=== PATIENT | male | born 2000 | race Caucasian/White ===

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

== ENCOUNTER 2020-08-12 08:33 | Emergency (ER) | payer OTHER ==
[2020-08-12 08:49] VITALS: BP 121/72; PULSE 69; RESP 16; TEMP 98.8
[2020-08-12 10:10] LABS: Appearance,Urine Clear (Clear); Bilirubin,Urine Negative (Negative); Blood,Urine Negative (Negative); Color,Urine Yellow; Glucose,Urine (UA) Negative (Negative); Ketones,Urine Negative (Negative); Leukocyte Esterase,Urine Negative (Negative); Nitrite,Urine Negative (Negative); PH, Urine 7.5 (5.0-8.0); Protein,Urine Trace (Negative); Specific Gravity,Urine 1.028 (1.001-1.035)
--- NOTE | 2020-08-12 10:11 | ED ---
Male Urogenital HPI - General Chief complaint: Urogenital Stated complaint: Make Time Seen by Provider: 08/12/20 09:19 Source: patient, RN notes reviewed Mode of arrival: ambulatory Limitations: no limitations - History of Present Illness Initial comments: 20-year-old male presents emergency Department with chief complaint of right- sided hip pain. Patient states started yesterday felt like he was just having some discomfort. Patient states that he seemed to worsen throughout work and states that it worsened as he ambulated. Patient denies any significant swelling. Patient has no dysuria no hematuria. Patient has no plan on discharge. Patient denies chest pain shortness breath back pain. - Related Data Home Medications Medication Instructions Recorded Confirmed FLUoxetine HCL [PROzac] 40 mg PO DAILY 08/12/20 08/12/20 Ibuprofen [Motrin] 600 mg PO Q8HR PRN 08/12/20 08/12/20 Omeprazole 20 mg PO DAILY 08/12/20 08/12/20 clonazePAM 0.5 mg PO HS 08/12/20 08/12/20 Allergies Allergy/AdvReac Type Severity Reaction Status Date / Time No Known Allergies Allergy Verified 08/12/20 10:07 Review of Systems ROS Statement: Those systems with pertinent positive or pertinent negative responses have been documented in the HPI. ROS Other: All systems not noted in ROS Statement are negative. Past Medical History Past Medical History: No Reported History History of Any Multi-Drug Resistant Organisms: None Reported Past Surgical History: Adenoidectomy, Tonsillectomy Past Psychological History: ADD/ADHD Smoking Status: Vaper Past Alcohol Use History: None Reported Past Drug Use History: Marijuana General Exam Limitations: no limitations General appearance: alert, in no apparent distress Head exam: Present: atraumatic, normocephalic, normal inspection Respiratory exam: Present: normal lung sounds bilaterally. Absent: respiratory distress, wheezes, rales, rhonchi, stridor Cardiovascular Exam: Present: regular rate, normal rhythm, normal heart sounds. Absent: systolic murmur, diastolic murmur, rubs, gallop, clicks GI/Abdominal exam: Present: soft, normal bowel sounds. Absent: distended, tenderness, guarding, rebound, rigid exam: Present: testicular tenderness, circumcision. Absent: vertical testicular lie Back exam: Absent: CVA tenderness (R), CVA tenderness (L) Neurological exam: Present: alert, oriented X3, CN II-XII intact Course Vital Signs 08/12/20 08:45 Temperature 98.8 F Pulse Rate 69 Respiratory 16 Rate Blood Pressure 121/72 O2 Sat by Pulse 99 Oximetry Medical Decision Making - Medical Decision Making This a 20-year-old male presented for right groin pain. Ultrasound shows left epididymal cyst and evidence of epididymitis. Patient's urinalysis unremarkable. Patient will follow-up surgery for probable early hernia. - Lab Data Lab Results 08/12/20 Range/Units 09:44 Urine Color Yellow Urine Appearance Clear (Clear) Urine pH 7.5 (5.0-8.0) Ur Specific [place] 1.028 (1.001-1.035) Urine Protein Trace H (Negative) Urine Glucose (UA) Negative (Negative) Urine Ketones Negative (Negative) Urine Blood Negative (Negative) Urine Nitrite Negative (Negative) Urine Bilirubin Negative (Negative) Urine Urobilinogen 2.0 (<2.0) mg/dL Ur Leukocyte Esterase Negative (Negative) Disposition Clinical Impression: Inguinal hernia Disposition: HOME SELF-CARE Condition: Stable Instructions (If sedation given, give patient instructions): Inguinal Hernia (ED) Additional Instructions: Please return to the Emergency Department if symptoms worsen or any other concerns. Is patient prescribed a controlled substance at d/c from ED?: No Referrals: Jeremie Burns MD [REFERRING] - 1-2 days Taryn Green MD [STAFF PHYSICIAN] - 1-2 days Time of Disposition: 10:20
--- NOTE | 2020-08-12 10:12 | US ---
EXAMINATION TYPE: US scrotum with doppler. Grayscale and color Doppler Duplex imaging performed of clarita baumann scrotum. DATE OF EXAM: 08/12/2020 COMPARISON: US 2019 CLINICAL HISTORY: pain/?hernia. EXAM MEASUREMENTS: TESTICLES: Right Testicle: 4.4 x 2.5 x 2.8 cm Left Testicle: 4.7 x 2.4 x 2.8 cm EPIDIDYMIS HEAD: Right Epididymis: 1.1 x 0.7 cm Left Epididymis: 1.3 x 0.7 cm , 0.3 x 0.3 cm cyst. Doppler performed to assess for testicular vascularity; good bilateral color flow and waveforms are s een. There is no evidence of testicular torsion. Presence of hydroceles: none appreciated Presence of varicoceles: none appreciated IMPRESSION: Left epididymal cyst.
[2020-08-12] MEDS ORDERED: ACET/COD 300 MG/30 MG STARTER PACK 6 TAB BTL PO STA (10:22)
[2020-08-12] MEDS ORDERED: HYDROcodone/APAP 5-325MG 1 EACH TAB PO STA (10:22)
== END 2020-08-12 10:36 | disposition home or self-care (01) ==
LOC: EC 08:33
DX: K40.90 Unilateral inguinal hernia, without obstruction or gangrene, not specified as recurrent (principal); N50.3 Cyst of epididymis; N45.1 Epididymitis; F17.290 Nicotine dependence, other tobacco product, uncomplicated; Z79.899 Other long term (current) drug therapy
CPT/HCPCS: 76870; 81003; 87491; 87591; 93975; 99284

== ENCOUNTER → 2020-08-20 | Outpatient (CLI) | payer OTHER | END | disposition home or self-care (01) | LOC: LABPAT 11:55 | PROVIDERS: ATTEND Surgery | DX: Z11.52 Encounter for screening for COVID-19 (principal) | CPT/HCPCS: U0003; C9803; U0005 ==

== ENCOUNTER 2020-08-25 08:13 | Day surgery (SDC) | payer OTHER ==
[2020-08-20 15:03] VITALS: BMI 25.8
[~2020-08-25 08:13] MED LIST: DEXAMETHASONE SOD PHOSPHATE 4 MG/ML 1 ML VIAL IV ONE; HEPARIN SODIUM,PORCINE/PF 5,000 UNIT/0.5 ML SYRINGE SQ PRN; HYDROmorphone 0.5 MG/0.5 ML SYRINGE IVP PRN; LACTATED RINGERS 1,000 ML IV SCH; LIDOCAINE 1% (10MG/ML) FOR IV START INTRADERMA PRN; MIDAZOLAM 2 MG/2 ML VIAL IV PRN
[2020-08-25 08:53] LABS: Basophils # (A) 0.1 k/uL (0-0.2); Basophils % (A) 1 %; Eosinophils # (A) 0.2 k/uL (0-0.7); Eosinophils % (A) 2 %; HCT 49.6 % (39.0-53.0); HGB 17.1 gm/dL (13.0-17.5); Lymphocytes # (A) 2.3 k/uL (1.0-4.8); Lymphocytes % (A) 23 %; MCH 29.5 pg (25.0-35.0); MCHC 34.5 g/dL (31.0-37.0); MCV 85.6 fL (80.0-100.0); Mean Platelet Volume 7.2; Monocytes # (A) 0.6 k/uL (0-1.0); Monocytes % (A) 6 %; Neutrophils # (A) 6.8 k/uL (1.3-7.7); Neutrophils % (A) 68 %; Platelet Count 257 k/uL (150-450); RDW 13.5 % (11.5-15.5); WBC 9.9 k/uL (4.0-11.0)
[2020-08-25] MEDS: ONDANSETRON 4 MG/2 ML VIAL IVP ONE ×2 (09:12→11:42)
[2020-08-25] MEDS ORDERED: fentaNYL (PF) 50 MCG/ML 2 ML AMP IVP ONE (09:18)
[2020-08-25] MEDS ORDERED: MIDAZOLAM 2 MG/2 ML VIAL IVP ONE (09:22)
--- NOTE | 2020-08-25 09:41 | P.ANPRN ---
Procedure Note - Anesthesia - Nerve Block Performed Bilateral Erector Spinae Single Time Out Performed: Yes Date of Procedure: 08/25/20 Procedure Start Time: :15 Procedure Stop Time: : Location of Patient: PreOp Indication: Requested by Surgeon Specifically requested for management of pain by DrMike: Adrian Syed Sedation Type: Sedate with meaningful contact maintained Preparation: Sterile Prep Position: Prone Needle Types: Pajunk Needle Gauge: 21 Ultrasound used to visualize needle placement: Yes Ultrasound used to observe medication spread: Yes Injectate: 0.5% Ropivacaine (see comment for volume) (15 ml plus 15 ml 0.9 % NS plus Dexamethasone 4 mg per side) Blood Aspirated: No Pain Paresthesia on Injection Noted: No Resistance on Injection: Normal Image Stored and Saved: Yes Events: Uneventful and Well Tolerated
[2020-08-25] MEDS ORDERED: LIDOCAINE 1% INJ 10MG/ML (20 ML MDV) ONE (10:13)
[2020-08-25] MEDS ORDERED: GLYCOPYRROLATE 0.2 MG/ML 2 ML VIAL ONE (10:13)
[2020-08-25] MEDS ORDERED: PROPOFOL 10 MG/ML 20 ML VIAL IV ONE (10:13)
[2020-08-25] MEDS ORDERED: DEXAMETHASONE SOD PHOSPHATE 4 MG/ML 1 ML VIAL ONE (10:13)
[2020-08-25] MEDS ORDERED: SUCCINYLCHOLINE CHLORIDE 100 MG/5 ML SYR IV ONE (10:13)
[2020-08-25] MEDS ORDERED: ROCURONIUM 10 MG/ML (5 ML VIAL) IV ONE (10:13)
[2020-08-25] MEDS ORDERED: ePHEDrine SULFATE/0.9% NACL/PF 50 MG/5 ML SYRINGE IV ONE (10:13)
[2020-08-25] MEDS ORDERED: ROPIVACAINE 5 MG/ML 30 ML VIAL ONE (10:13)
[2020-08-25] MEDS ORDERED: fentaNYL (PF) 50 MCG/ML 2 ML AMP ONE (10:13)
[2020-08-25] MEDS ORDERED: PHENYLEPHRINE-0.9% NACL SYG 1,000 MCG/10 ML SYRINGE ONE (10:13)
[2020-08-25] MEDS ORDERED: HYDROmorphone (PF) 1 MG/ML ONE (10:13)
[2020-08-25] MEDS ORDERED: NEOSTIGMINE 1 MG/ML 10 ML VIAL ONE (10:13)
[2020-08-25] MEDS ORDERED: LIDOCAINE 1%-EPI 1:100,000 20 ML VIAL SQ ONE ×2 (10:38)
[2020-08-25] MEDS ORDERED: LACTATED RINGERS 1,000 ML IV ONE (10:50)
--- NOTE | 2020-08-25 11:29 | P.OP ---
Date of Procedure: 08/25/20 Preoperative Diagnosis: Right inguinal hernia Postoperative Diagnosis: Right inguinal hernia, indirect Procedure(s) Performed: Robotic right inguinal hernia repair with mesh placement Implants: ProGrip inguinal mesh Anesthesia: BASSAM Surgeon: Adrian Syed Pathology: none sent Condition: stable Disposition: same day Indications for Procedure: 20-year-old male presented to the surgery clinic with complaints of right groin pain. On exam, patient was found to have a right inguinal hernia. Patient has opted for robotic right inguinal hernia repair. He was explained risks, benefits and alternatives to procedure and did provide consent prior to attending the operating suite. Operative Findings: Right-sided indirect inguinal hernia Description of Procedure: The patient was brought to the operating suite and placed in supine position. After general endotracheal anesthesia was induced, Carmona catheter was placed under sterile conditions. Arms were then tucked size bilaterally and all pressure points are padded. SCDs were also placed in his bilateral lower extremities and were working throughout the entire case. Preoperative antibiotics were given prior to the incision. A timeout was performed with all team members in agreement with correct patient, procedure and location. A supraumbilical incision was made approximately 20 cm superior to the pubic symphysis. The abdomen was then entered with an 8 mm trocar. At this point, pneumoperitoneum was achieved. 2 additional incisions were made approximately 11 cm lateral to the supraumbilical incision and a millimeter trochars were placed. The patient was then placed in Trendelenburg position and the hernia site was clearly visualized on the right side. This was noted as an indirect internal hernia. The robot was then docked appropriately. Incision was then made just lateral to the medial umbilical ligament on the right side with the monopolar scissors and the peritoneal flap was created and was taken down towards Ifeanyi's ligament. The flap was then extended laterally. Attention was then turned to the indirect inguinal hernia. The sac was then freed from the cord all while preserving the cord structures. At this point the indirect ingu inal hernia was reduced. Once the interspace was appropriately dissected out, we brought the laparoscopic Parietex ProGrip mesh and unrolled it over the hernia site. Once appropriately in place, the peritoneal flap was closed using a running 20V lock suture. Once this was completed, we removed all robotic instruments and undocked the robot. The supraumbilical fascial incision site was closed with 0 Vicryl suture using the Angel Hyman device. This was done under laparoscopic guidance. All skin incisions were then closed with 4-0 Vicryl subcuticular suture. The Carmona catheter was removed. The patient was awakened and taken to recovery unit in stable condition.
[2020-08-25 11:37] VITALS: TEMP 97
[2020-08-25] MEDS ORDERED: KETOROLAC 15 MG/ML 1 ML VIAL IVP ONE (11:42)
[2020-08-25] MEDS ORDERED: HYDROcodone/APAP 5-325MG 1 EACH TAB ONE (12:35)
[2020-08-25] MEDS ORDERED: HYDROcodone/APAP 5-325MG 1 EACH TAB PO ONE (12:37)
[2020-08-25 12:59] VITALS: RESP 16
[2020-08-25 13:15] VITALS: BP 132/62; PULSE 109
== END 2020-08-25 13:33 | disposition home or self-care (01) ==
LOC: OR 08:13
PROVIDERS: ATTEND Surgery
DX: K40.90 Unilateral inguinal hernia, without obstruction or gangrene, not specified as recurrent (principal); R19.7 Diarrhea, unspecified; F32.9 Major depressive disorder, single episode, unspecified; F17.200 Nicotine dependence, unspecified, uncomplicated; K08.89 Other specified disorders of teeth and supporting structures; Z79.1 Long term (current) use of non-steroidal anti-inflammatories (NSAID); Z79.899 Other long term (current) drug therapy; Z80.3 Family history of malignant neoplasm of breast; Z83.3 Family history of diabetes mellitus; Z82.49 Family history of ischemic heart disease and other diseases of the circulatory system
CPT/HCPCS: 49650; S2900; 64999; 76942; 85025

== ENCOUNTER 2020-12-25 15:32 | Emergency (ER) | payer OTHER ==
[2020-12-25 15:42] VITALS: BP 124/74; PULSE 103; RESP 18; TEMP 98.4
--- NOTE | 2020-12-25 18:05 | ED ---
Anxiety HPI - General Chief Complaint: Anxiety Stated Complaint: mental health Time Seen by Provider: 12/25/20 16:09 Source: patient Mode of arrival: ambulatory - History of Present Illness Initial Comments: Francoise and is a 20-year-old male who presents emergency department reported panic attacks. He states he has suffered from anxiety and depression for several years however has not had a formal diagnosis. He has been treated with medications from his primary care physician. Most recently patient was placed on Klonopin which she is to take knee has a panic attack however he states he does not like taking it as makes him feel fatigued. He is concerned about addiction. Patient has an appointment scheduled with [facility] on Monday. Since that he is concerned by the amount of panic attacks he is having daily and therefore felt he needed to come into the emergency department for sooner evaluation. Patient denies any provoking factors. No suicidal or homicidal ideations. Admits to smoking marijuana and occasionally drinks however denies dependency. Patient denied taking any medications today for her symptoms. No other alleviating, Perceptin or modifying factors - Related Data Home Medications: Home Medications Medication Instructions Recorded Confirmed clonazePAM [KlonoPIN] 0.25 mg PO DAILY PRN 12/25/20 12/25/20 Previous Rx's Medication Instructions Recorded ALPRAZolam [Xanax] 0.5 mg PO Q8HR PRN #21 tab 12/25/20 Allergies/Adverse Reactions: Allergies Allergy/AdvReac Type Severity Reaction Status Date / Time No Known Allergies Allergy Verified 12/25/20 18:06 Review of Systems ROS Statement: Those systems with pertinent positive or pertinent negative responses have been documented in the HPI. ROS Other: All systems not noted in ROS Statement are negative. Past Medical History Past Medical History: No Reported History History of Any Multi-Drug Resistant Organisms: None Reported Past Surgical History: Adenoidectomy, Hernia Repair, Tonsillectomy Past Psychological History: ADD/ADHD Smoking Status: Vaper Past Alcohol Use History: Occasional Past Drug Use History: Marijuana General Exam Limitations: no limitations Course Vital Signs 12/25/20 15:36 Temperature 98.4 F Pulse Rate 103 H Respiratory 18 Rate Blood Pressure 124/74 O2 Sat by Pulse 98 Oximetry Medical Decision Making - Medical Decision Making Upon arrival patient was placed into room 26. The history of physical exam is performed. Patient is evaluated by CPS. Recommendations on the behalf is to start the patient on Xanax and to discontinue Klonopin. Patient is given resources to [facility]. He is given contact information to our PS number if he has worsening symptoms would like to talk. He will have his intake done on Monday. Patient is given enough medications to last week. Has any new or worsening symptoms he can always return to the emergency room. Patient was to this was discharged in stable condition Disposition Clinical Impression: Acute anxiety, Panic attack Disposition: HOME SELF-CARE Condition: Stable Instructions (If sedation given, give patient instructions): Generalized Anxiety Disorder (ED) Additional Instructions: Please follow up with [facility] on Monday. Take the medication as directed. Return to the ED for any new or worsening symptoms. Prescriptions: ALPRAZolam [Xanax] 0.5 mg PO Q8HR PRN #21 tab PRN Reason: Anxiety Is patient prescribed a controlled substance at d/c from ED?: Yes When asked, does pt state using other controlled substances?: No If prescribed controlled substance>3 days was MAPS reviewed?: Prescribed <3 Days Referrals: Beth Cadena MD [Primary Care Provider] - 1-2 days Time of Disposition: 18:05
== END 2020-12-25 18:19 | disposition home or self-care (01) ==
LOC: EC 15:32
DX: F41.0 Panic disorder [episodic paroxysmal anxiety] (principal); F17.290 Nicotine dependence, other tobacco product, uncomplicated; F12.90 Cannabis use, unspecified, uncomplicated; Z79.899 Other long term (current) drug therapy
CPT/HCPCS: 99283

== ENCOUNTER 2021-04-27 10:32 | Emergency (ER) | payer OTHER ==
[2021-04-27] MEDS ORDERED: KETOROLAC 30 MG/ML 1 ML VIAL IVP STA (11:58)
--- NOTE | 2021-04-27 11:58 | ED ---
General Adult HPI - General Chief complaint: Abdominal Pain Stated complaint: abd pain/male pain Time Seen by Provider: 04/27/21 11:31 Source: family, RN notes reviewed Mode of arrival: ambulatory Limitations: no limitations - History of Present Illness Initial comments: 21-year-old male presents to the emergency Department with complaints of right l ower quadrant abdominal pain 1 week. Patient attributes this discomfort to a previous hernia repair that he had last July. States pain does radiate from the right mid to lower abdomen down to the right groin. States pain is constant and does not worsen with activity. Does report being seen at urgent care on the of this past month with a negative workup. States he is scheduled to see his surgeon on the , but is unable to wait until then. Complains of intermittent episodes of nausea, one episode of vomiting. Denies fever, chills, chest pain, shortness of breath, constipation, diarrhea, dysuria, or hematuria. - Related Data Home Medications Medication Instructions Recorded Confirmed FLUoxetine HCL 40 mg PO DAILY 04/27/21 04/27/21 buPROPion SR [Wellbutrin SR] 100 mg PO DAILY 04/27/21 04/27/21 Previous Rx's Medication Instructions Recorded Ibuprofen [Motrin] 600 mg PO Q8HR PRN #20 tab 04/27/21 Allergies Allergy/AdvReac Type Severity Reaction Status Date / Time No Known Allergies Allergy Verified 04/27/21 13:43 Review of Systems ROS Statement: Those systems with pertinent positive or pertinent negative responses have been documented in the HPI. ROS Other: All systems not noted in ROS Statement are negative. Past Medical History Past Medical History: No Reported History History of Any Multi-Drug Resistant Organisms: None Reported Past Surgical History: Adenoidectomy, Hernia Repair, Tonsillectomy Past Psychological History: ADD/ADHD Smoking Status: Never smoker, Vaper Past Alcohol Use History: Occasional Past Drug Use History: Marijuana General Exam Limitations: no limitations (This is a well-developed, well-nourished male in no acute distress. Initial temperature 98.9, pulse 67, respirations 19, blood pressure 115/67, pulse ox 99% on room air.) General appearance: alert, in no apparent distress ENT exam: Present: normal exam, normal oropharynx, mucous membranes moist Respiratory exam: Present: normal lung sounds bilaterally. Absent: respiratory distress, wheezes, rales, rhonchi, stridor Cardiovascular Exam: Present: regular rate, normal rhythm, normal heart sounds. Absent: systolic murmur, diastolic murmur, rubs, gallop, clicks GI/Abdominal exam: Present: soft, tenderness (Right lower quadrant abdominal pain- tenderness upon palpation), normal bowel sounds. Absent: distended, guarding, rebound, rigid, mass, hernia Back exam: Present: normal inspection. Absent: CVA tenderness (R), CVA tenderness (L) Neurological exam: Present: alert, oriented X3, CN II-XII intact Psychiatric exam: Present: normal affect, normal mood Skin exam: Present: warm, dry, intact, normal color. Absent: rash Course Vital Signs 04/27/21 04/27/21 11:11 14:07 Temperature 98.9 F 98.1 F Pulse Rate 67 85 Respiratory 19 18 Rate Blood Pressure 115/67 119/84 O2 Sat by Pulse 99 100 Oximetry Medical Decision Making - Medical Decision Making 21-year-old male with a history of hernia repair 6 months ago was evaluated for complaints of right lower abdominal pain that radiates to the right groin. Upon exam, patient is well-appearing, afebrile, not tachypneic nor tachycardic, and tolerating oral intake without difficulty. Right lower abdomen is diffusely mildly tender upon palpation, no hernia or nodules palpable in the abdomen or inguinal area. Patient was given Toradol for pain with improvement. Laboratory studies were reviewed with no significant findings. CT of the abdomen and pelvis with contrast was obtained showing no appendicitis; possible mesenteric adenitis, though no clinical indicators. Results discussed with patient. He is scheduled to see his surgeon on the . This patient's care was discussed with my attending Dr. Buckley. Patient will be discharged home to follow up as scheduled. Work note was provided for patient. He is prescribed Motrin for discomfort. Return parameters were discussed in detail. Patient verbalizes understanding and agrees with this plan. - Lab Data Result diagrams: 04/27/21 12:10 04/27/21 12:10 Lab Results 04/27/21 04/27/21 04/27/21 Range/Units 12:10 12:10 12:10 WBC 8.4 (3.8-10.6) k/uL RBC 5.49 (4.30-5.90) m/uL Hgb 16.6 (13.0-17.5) gm/dL Hct 47.5 (39.0-53.0) % MCV 86.6 (80.0-100.0) fL MCH 30.3 (25.0-35.0) pg MCHC 35.0 (31.0-37.0) g/dL RDW 13.9 (11.5-15.5) % Plt Count 309 (150-450) k/uL MPV 7.6 Neutrophils % 56 % Lymphocytes % 34 % Monocytes % 6 % Eosinophils % 2 % Basophils % 1 % Neutrophils # 4.7 (1.3-7.7) k/uL Lymphocytes # 2.9 (1.0-4.8) k/uL Monocytes # 0.5 (0-1.0) k/uL Eosinophils # 0.2 (0-0.7) k/uL Basophils # 0.1 (0-0.2) k/uL Sodium 142 (137-145) mmol/L Potassium 4.5 (3.5-5.1) mmol/L Chloride 103 (98-107) mmol/L Carbon Dioxide 26 (22-30) mmol/L Anion Gap 13 mmol/L BUN 11 (9-20) mg/dL Creatinine 0.90 (0.66-1.25) mg/dL Est GFR (CKD-EPI)AfAm >90 (>60 ml/min/1.73 sqM) Est GFR (CKD-EPI)NonAf >90 (>60 ml/min/1.73 sqM) Glucose 92 (74-99) mg/dL Calcium 10.1 (8.4-10.2) mg/dL Total Bilirubin 0.6 (0.2-1.3) mg/dL AST 33 (17-59) U/L ALT 30 (4-49) U/L Alkaline Phosphatase 52 (38-126) U/L Total Protein 7.6 (6.3-8.2) g/dL Albumin 4.9 (3.5-5.0) g/dL Urine Color Yellow Urine Appearance Clear (Clear) Urine pH 6.5 (5.0-8.0) Ur Specific [place] 1.024 (1.001-1.035) Urine Protein Negative (Negative) Urine Glucose (UA) Negative (Negative) Urine Ketones Negative (Negative) Urine Blood Negative (Negative) Urine Nitrite Negative (Negative) Urine Bilirubin Negative (Negative) Urine Urobilinogen 2.0 (<2.0) mg/dL Ur Leukocyte Esterase Negative (Negative) - Radiology Data Radiology results: report reviewed, image reviewed CT of the abdomen and pelvis with contrast is obtained. Report was reviewed in its entirety. Impression per Dr. Escobar is appendix normal. Correlate for mesenteric adenitis. Disposition Clinical Impression: Nonspecific abdominal pain Disposition: HOME SELF-CARE Condition: Stable Instructions (If sedation given, give patient instructions): Abdominal Pain (ED) Additional Instructions: Take Motrin with food as needed for discomfort. Keep your appointment as scheduled with the surgeon for follow-up care. Return to the emergency department with any new, worsening, or concerning symptoms. Prescriptions: Ibuprofen [Motrin] 600 mg PO Q8HR PRN #20 tab PRN Reason: Pain Is patient prescribed a controlled substance at d/c from ED?: No Referrals: Beth Cadena MD [Primary Care Provider] - 1-2 days Time of Disposition: 14:08
[2021-04-27 12:23] LABS: Basophils # (A) 0.1 k/uL (0-0.2); Basophils % (A) 1 %; Eosinophils # (A) 0.2 k/uL (0-0.7); Eosinophils % (A) 2 %; HCT 47.5 % (39.0-53.0); HGB 16.6 gm/dL (13.0-17.5); Lymphocytes # (A) 2.9 k/uL (1.0-4.8); Lymphocytes % (A) 34 %; MCH 30.3 pg (25.0-35.0); MCV 86.6 fL (80.0-100.0); Mean Platelet Volume 7.6; Monocytes # (A) 0.5 k/uL (0-1.0); Monocytes % (A) 6 %; Neutrophils # (A) 4.7 k/uL (1.3-7.7); Neutrophils % (A) 56 %; Platelet Count 309 k/uL (150-450); RBC 5.49 m/uL (4.30-5.90); RDW 13.9 % (11.5-15.5); WBC 8.4 k/uL (3.8-10.6)
[2021-04-27 12:32] LABS: ALT 30 U/L (4-49); AST 33 U/L (17-59); African American GFR (CKD) >90 (>60 ml/min/1.73 sqM); Albumin 4.9 g/dL (3.5-5.0); Alkaline Phosphatase 52 U/L (38-126); Anion Gap 13 mmol/L; Blood Urea Nitrogen 11 mg/dL (9-20); Calcium 10.1 mg/dL (8.4-10.2); Carbon Dioxide 26 mmol/L (22-30); Chloride 103 mmol/L (98-107); Glucose 92 mg/dL (74-99); Non-African American GFR(CKD) >90 (>60 ml/min/1.73 sqM); Potassium 4.5 mmol/L (3.5-5.1); Sodium 142 mmol/L (137-145); Total Bilirubin 0.6 mg/dL (0.2-1.3); Total Protein 7.6 g/dL (6.3-8.2)
[2021-04-27 12:33] LABS: Appearance,Urine Clear (Clear); Bilirubin,Urine Negative (Negative); Blood,Urine Negative (Negative); Color,Urine Yellow; Glucose,Urine (UA) Negative (Negative); Ketones,Urine Negative (Negative); Leukocyte Esterase,Urine Negative (Negative); Nitrite,Urine Negative (Negative); PH, Urine 6.5 (5.0-8.0); Protein,Urine Negative (Negative); Specific Gravity,Urine 1.024 (1.001-1.035)
--- NOTE | 2021-04-27 13:14 | CT ---
EXAMINATION TYPE: CT abdomen pelvis w con DATE OF EXAM: 04/27/2021 COMPARISON: 03/28/2019 HISTORY: Right lower quadrant pain, s/p hernia repair CT DLP: 932.2 mGycm Automated exposure control for dose reduction was used. CONTRAST: CT scan of the abdomen pelvis is performed with IV Contrast, patient injected with 100 mL of Isovue 3 00. FINDINGS- LUNG BASES- No significant abnormality is appreciated. LIVER/GB- No gross abnormality is appreciated. PANCREAS- No gross abnormality is seen. SPLEEN- No gross abnormality is seen. ADRENALS- No gross abnormality is seen. KIDNEYS/BLADDER- no hydronephrosis nephrolithiasis or renal mass. BOWEL-bowel gas pattern nonspecific. Appendix normal.. LYMPH NODES- No greater than 1cm abdominal or pelvic lymph nodes areappreciated. OSSEOUS STRUCTURES- No significant abnormality is seen. OTHER- aorta of normal caliber. There are numerous shotty lymph nodes in the mesentery of the right lower quadrant. IMPRESSION- 1. Appendix normal. Correlate for mesenteric adenitis.
[2021-04-27 14:07] VITALS: BP 119/84; PULSE 85; RESP 18; TEMP 98.1
== END 2021-04-27 14:34 | disposition home or self-care (01) ==
LOC: EC 10:32
DX: R10.31 Right lower quadrant pain (principal); F17.290 Nicotine dependence, other tobacco product, uncomplicated
CPT/HCPCS: 36415; 80053; 85025; 81003; 74177; 99284; 96374; J1885; Q9967

== ENCOUNTER 2021-05-11 20:21 | Emergency (ER) | payer OTHER ==
[2021-05-11 22:18] VITALS: TEMP 98.3
[2021-05-11 23:29] LABS: Amorphous Sediment,Urine Rare /hpf; Appearance,Urine Turbid (Clear); Bacteria,Urine Rare /hpf; Bilirubin,Urine Negative (Negative); Blood,Urine Negative (Negative); Color,Urine Yellow; Glucose,Urine (UA) Negative (Negative); Ketones,Urine Negative (Negative); Leukocyte Esterase,Urine Negative (Negative); Mucus,Urine Rare /hpf; Nitrite,Urine Negative (Negative); Protein,Urine Negative (Negative); RBC,Urine <1 /hpf (0-5); Specific Gravity,Urine 1.024 (1.001-1.035); Urobilinogen,Urine <2.0 mg/dL (<2.0)
--- NOTE | 2021-05-11 23:39 | US ---
EXAMINATION TYPE: US scrotum with doppler. Grayscale and color Doppler Duplex imaging performed of clarita baumann scrotum. DATE OF EXAM: 05/11/2021 COMPARISON: CT, US CLINICAL HISTORY: RIGHT TESTICLE. Right testicle pain EXAM MEASUREMENTS: TESTICLES: Right Testicle: 4.7 x 2.9 x 2.4 cm Left Testicle: 4. x 2.9 x 2.3 cm EPIDIDYMIS HEAD: Right Epididymis: 0.9 x 0.9 x 1.0 cm Left Epididymis: 0.6 x 0.8 x 1.4 cm . Anechoic area seen: 0.5 x 0.5 x 0.4 cm. Doppler performed to assess for testicular vascularity; bilateral color flow and waveforms are seen. Presence of hydroceles: On left measuring 2.2 x 1.9 x 0.7 cm. Presence of varicoceles: None seen. IMPRESSION: No testicular torsion or mass. Small left epididymal cyst. There is mild left-sided hydro tricia.
--- NOTE | 2021-05-12 00:07 | US ---
EXAMINATION TYPE: US abdomen APPY DATE OF EXAM: 05/11/2021 COMPARISON: CT CLINICAL HISTORY: RIGHT LOWER ABDOMINAL PAIN. Right lower abdominal pain. APPENDIX. Appendix not seen with certainty. *Exam is limited due to gas. Indistinct, area of mixed echogenicity is seen within the RLQ near the iliac vessels measuring 3.2 x 1.3 x 1.0 cm. No peristalsis is seen within this area. Some vascularity is present within. Area does not appear to compress. IMPRESSION: Appendix not clearly seen. No free fluid. No evidence of an abscess.
--- NOTE | 2021-05-12 00:33 | ED ---
Male Urogenital HPI - General Chief complaint: Urogenital Stated complaint: Testicular Pain, Abdominal Pain Time Seen by Provider: 05/12/21 00:07 Source: patient Mode of arrival: ambulatory Limitations: no limitations - History of Present Illness MD Complaint: testicle pain, other (RLQ pain) Onset/Timin -: month(s) Location: right testicle, right inguinal region Radiation: none Severity: moderate Quality: aching Consistency: intermittent Improves with: none Worsens with: none Reports: denies other symptoms - Related Data Home Medications Medication Instructions Recorded Confirmed FLUoxetine HCL 40 mg PO DAILY 04/27/21 04/27/21 buPROPion SR [Wellbutrin SR] 100 mg PO DAILY 04/27/21 04/27/21 Previous Rx's Medication Instructions Recorded Ibuprofen [Motrin] 600 mg PO Q8HR PRN #20 tab 04/27/21 Allergies Allergy/AdvReac Type Severity Reaction Status Date / Time No Known Allergies Allergy Verified 05/11/21 22:18 Review of Systems ROS Statement: Those systems with pertinent positive or pertinent negative responses have been documented in the HPI. ROS Other: All systems not noted in ROS Statement are negative. Constitutional: Denies: fever, chills Respiratory: Denies: cough, dyspnea Cardiovascular: Denies: chest pain, palpitations, edema Gastrointestinal: Reports: abdominal pain. Denies: nausea, vomiting, diarrhea, constipation Genitourinary: Reports: testicular pain. Denies: dysuria, frequency, hematuria, discharge, testicular mass Musculoskeletal: Denies: back pain Skin: Denies: rash Neurological: Denies: headache Past Medical History Past Medical History: No Reported History History of Any Multi-Drug Resistant Organisms: None Reported Past Surgical History: Adenoidectomy, Hernia Repair, Tonsillectomy Past Psychological History: ADD/ADHD Smoking Status: Never smoker, Vaper Past Alcohol Use History: Occasional Past Drug Use History: Marijuana General Exam Limitations: no limitations General appearance: alert, in no apparent distress Head exam: Present: atraumatic, normocephalic Eye exam: Present: normal appearance. Absent: scleral icterus, conjunctival injection Respiratory exam: Present: normal lung sounds bilaterally. Absent: respiratory distress, wheezes, rales, rhonchi, stridor Cardiovascular Exam: Present: regular rate, normal rhythm, normal heart sounds. Absent: systolic murmur, diastolic murmur, rubs, gallop GI/Abdominal exam: Present: soft, tenderness (Mild right lower quadrant tenderness without rebound or guarding). Absent: distended, guarding, rebound, rigid, mass, pulsatile mass exam: Present: normal inspection, vertical testicular lie, circumcision. Absent: testicular tenderness, urethral discharge, scrotal swelling Extremities exam: Present: normal inspection, normal capillary refill. Absent: pedal edema, calf tenderness Back exam: Present: normal inspection. Absent: CVA tenderness (R), CVA tenderness (L) Neurological exam: Present: alert Skin exam: Present: warm, dry, intact, normal color. Absent: rash Course Vital Signs 05/11/21 22:15 Temperature 98.3 F Pulse Rate 72 Respiratory 16 Rate Blood Pressure 127/75 O2 Sat by Pulse 100 Oximetry Medical Decision Making - Lab Data Lab Results 05/11/21 Range/Units 22:27 Urine Color Yellow Urine Appearance Turbid (Clear) Urine pH 7.0 (5.0-8.0) Ur Specific [place] 1.024 (1.001-1.035) Urine Protein Negative (Negative) Urine Glucose (UA) Negative (Negative) Urine Ketones Negative (Negative) Urine Blood Negative (Negative) Urine Nitrite Negative (Negative) Urine Bilirubin Negative (Negative) Urine Urobilinogen <2.0 (<2.0) mg/dL Ur Leukocyte Esterase Negative (Negative) Urine RBC <1 (0-5) /hpf Amorphous Sediment Rare H (None) /hpf Urine Bacteria Rare H (None) /hpf Urine Mucus Rare H (None) /hpf Disposition Clinical Impression: Abdominal pain Disposition: HOME SELF-CARE Condition: Good Instructions (If sedation given, give patient instructions): Abdominal Pain (ED) Is patient prescribed a controlled substance at d/c from ED?: No Referrals: Beht Cadena MD [Primary Care Provider] - 1-2 days
--- NOTE | 2021-05-12 01:18 | CT ---
EXAMINATION TYPE: CT abdomen pelvis wo con DATE OF EXAM: 05/12/2021 COMPARISON: 04/27/2021 HISTORY: pain CT DLP: 647.5 mGycm Automated exposure control for dose reduction was used. Images obtained from the diaphragm to the floor the pelvis with no contrast. Lung bases are clear. There is no pleural effusion. Heart size is normal. There is no pericardial eff usion. Liver spleen stomach pancreas gallbladder appear intact. The bile ducts are not dilated. There is no adrenal mass. Kidneys have normal size and contour. There is no hydronephrosis. Ureters a re not dilated. There is no retroperitoneal adenopathy. Bladder distends smoothly. There is no eviden ce of a pelvic mass. There is no mesenteric edema. There is no ascites or free air. There is no bowel obstruction. Appendi x is medial and posterior and appears normal. Appendix is adjacent to the sacrum and partly filled wi th air. The lumbar vertebra have normal spacing and alignment. Posterior elements are intact. There is no com pression fracture. Hip joints are intact. IMPRESSION: Negative CT scan abdomen and pelvis. Normal appendix. No adverse change compared to old exam.
[2021-05-12] MEDS ORDERED: MAGNESIUM CITRATE 296 ML BOTTLE PO ONE (01:44)
[2021-05-12 01:53] VITALS: BP 124/81; PULSE 70; RESP 18
== END 2021-05-12 01:52 | disposition home or self-care (01) ==
LOC: EC 20:21
DX: R10.9 Unspecified abdominal pain (principal); F90.9 Attention-deficit hyperactivity disorder, unspecified type; F17.290 Nicotine dependence, other tobacco product, uncomplicated; F12.90 Cannabis use, unspecified, uncomplicated; Z72.89 Other problems related to lifestyle
CPT/HCPCS: 74176; 76705; 76870; 81001; 93975; 99284

== ENCOUNTER 2021-05-16 00:32 | Emergency (ER) | payer OTHER ==
[2021-05-16 00:37] VITALS: BP 127/75; PULSE 78; RESP 16; TEMP 98.1
[2021-05-16] MEDS ORDERED: ACET/COD 300 MG/30 MG STARTER PACK 6 TAB BTL PO STA (00:38)
--- NOTE | 2021-05-16 00:44 | ED ---
ENT HPI - General Chief complaint: Dental/Oral Stated complaint: Dental Pain Time Seen by Provider: 05/16/21 00:37 Source: patient, RN notes reviewed Mode of arrival: ambulatory Limitations: no limitations - History of Present Illness Initial comments: 21-year-old male complaining of right mouth pain. Patient notes he did follow up with a dentist approximately 1-2 months ago and was referred to an oral surgeon. Patient Notes waiting for preapproval through insurance. He notes today he is having worsening pain. He notes that he is looking for symptom medic control until Monday. He is otherwise well-appearing in no apparent distress. He denied any chest pain shortness breath headache nausea vomiting diarrhea constipation fever fatigue chills. - Related Data Home Medications Medication Instructions Recorded Confirmed FLUoxetine HCL 40 mg PO DAILY 04/27/21 04/27/21 buPROPion SR [Wellbutrin SR] 100 mg PO DAILY 04/27/21 04/27/21 Previous Rx's Medication Instructions Recorded Ibuprofen [Motrin] 600 mg PO Q8HR PRN #20 tab 04/27/21 Penicillin V Potassium [Pen Vee K] 500 mg PO QID #40 tablet 05/16/21 Allergies Allergy/AdvReac Type Severity Reaction Status Date / Time No Known Allergies Allergy Verified 05/16/21 00:33 Review of Systems ROS Statement: Those systems with pertinent positive or pertinent negative responses have been documented in the HPI. ROS Other: All systems not noted in ROS Statement are negative. Past Medical History Past Medical History: No Reported History History of Any Multi-Drug Resistant Organisms: None Reported Past Surgical History: Adenoidectomy, Hernia Repair, Tonsillectomy Past Psychological History: ADD/ADHD Smoking Status: Never smoker, Vaper Past Alcohol Use History: Occasional Past Drug Use History: Marijuana General Exam Limitations: no limitations General appearance: alert, in no apparent distress Head exam: Present: atraumatic, normocephalic, normal inspection Eye exam: Present: normal appearance, PERRL, EOMI. Absent: scleral icterus, conjunctival injection, periorbital swelling ENT exam: Present: normal exam, mucous membranes moist Expanded Mouth exam: Present: normal external inspection. Absent: drooling, trismus, muffled voice, tongue normal, tongue elevation Teeth exam: Present: normal inspection. Absent: dental caries, fractured tooth #, dental tenderness # Neck exam: Present: normal inspection Respiratory exam: Present: normal lung sounds bilaterally. Absent: respiratory distress, wheezes, rales, rhonchi, stridor Cardiovascular Exam: Present: regular rate, normal rhythm, normal heart sounds. Absent: systolic murmur, diastolic murmur, rubs, gallop, clicks GI/Abdominal exam: Present: soft, normal bowel sounds. Absent: distended, tenderness, guarding, rebound, rigid Extremities exam: Present: normal inspection, full ROM, normal capillary refill. Absent: tenderness, pedal edema, joint swelling, calf tenderness Neurological exam: Present: alert, oriented X3 Psychiatric exam: Present: normal affect, normal mood Skin exam: Present: warm, dry, intact, normal color. Absent: rash Course Vital Signs 05/16/21 00:33 Temperature 98.1 F Pulse Rate 78 Respiratory 16 Rate Blood Pressure 127/75 O2 Sat by Pulse 100 Oximetry Medical Decision Making - Medical Decision Making 21-year-old male complaining of right-sided mouth pain. Tylenol 3 starter pack given. Antibiotics sent to pharmacy. Patient was informed he needs to follow-up with dentist in the next 1-2 days. case discussed with Dr. Davidson Disposition Clinical Impression: Dental infection Disposition: HOME SELF-CARE Condition: Stable Instructions (If sedation given, give patient instructions): Toothache (ED) Additional Instructions: Please return to the Emergency Department if symptoms worsen or any other concerns. Follow-up with primary care 1-2 days. Follow-up with dentist as soon as possible. Take medication as prescribed Prescriptions: Penicillin V Potassium [Pen Vee K] 500 mg PO QID #40 tablet Is patient prescribed a controlled substance at d/c from ED?: No Referrals: Beth Cadena MD [Primary Care Provider] - 1-2 days Time of Disposition: 00:44
== END 2021-05-16 01:00 | disposition home or self-care (01) ==
LOC: EC 00:32
DX: K04.7 Periapical abscess without sinus (principal); F90.9 Attention-deficit hyperactivity disorder, unspecified type; F17.290 Nicotine dependence, other tobacco product, uncomplicated; F12.90 Cannabis use, unspecified, uncomplicated
CPT/HCPCS: 99282

== ENCOUNTER 2021-07-26 11:36 | Emergency (ER) | payer OTHER ==
[2021-07-26 11:54] VITALS: TEMP 98.7
--- NOTE | 2021-07-26 13:07 | ED ---
Abdominal Pain HPI - General Chief Complaint: Abdominal Pain Stated Complaint: abd pain/male pain Time Seen by Provider: 07/26/21 12:05 Source: patient, RN notes reviewed Mode of arrival: ambulatory Limitations: no limitations - History of Present Illness Initial Comments: 21-year-old male presents emergency Department chief complaint of ongoing groin pain, lower abdominal pain. Patient states increasing pain of last 48 hours. Patient states that had right inguinal hernia surgery by Dr. Syed states his been following up secondary ongoing pain he's been on 10 pound weight restriction. Patient states that he call today for follow-up appointment with the told him not for 2 weeks states that he had increase in discomfort pain and was concerned. Denies any significant swelling appears or chills no dysuria no hematuria. - Related Data Home Medications Medication Instructions Recorded Confirmed No Known Home Medications 07/26/21 07/26/21 Allergies Allergy/AdvReac Type Severity Reaction Status Date / Time No Known Allergies Allergy Verified 07/26/21 13:55 Review of Systems ROS Statement: Those systems with pertinent positive or pertinent negative responses have been documented in the HPI. ROS Other: All systems not noted in ROS Statement are negative. Past Medical History Past Medical History: No Reported History History of Any Multi-Drug Resistant Organisms: None Reported Past Surgical History: Adenoidectomy, Hernia Repair, Tonsillectomy Past Psychological History: ADD/ADHD Smoking Status: Never smoker, Vaper Past Alcohol Use History: Occasional Past Drug Use History: Marijuana General Exam Limitations: no limitations General appearance: alert, in no apparent distress Head exam: Present: atraumatic, normocephalic, normal inspection Eye exam: Present: normal appearance, PERRL, EOMI. Absent: scleral icterus, conjunctival injection, periorbital swelling Neck exam: Present: normal inspection, full ROM. Absent: tenderness, meningismus, lymphadenopathy Respiratory exam: Present: normal lung sounds bilaterally. Absent: respiratory distress, wheezes, rales, rhonchi, stridor Cardiovascular Exam: Present: regular rate, normal rhythm, normal heart sounds. Absent: systolic murmur, diastolic murmur, rubs, gallop, clicks GI/Abdominal exam: Present: soft, tenderness (Lower abdomen lower groin), normal bowel sounds. Absent: distended, guarding, rebound, rigid exam: Present: testicular tenderness. Absent: urethral discharge, scrotal swelling, vertical testicular lie Back exam: Absent: CVA tenderness (R), CVA tenderness (L) Neurological exam: Present: alert Skin exam: Present: warm, dry, intact, normal color. Absent: rash Course Vital Signs 07/26/21 11:52 Temperature 98.7 F Pulse Rate 81 Respiratory 20 Rate Blood Pressure 119/69 O2 Sat by Pulse 100 Oximetry Medical Decision Making - Medical Decision Making Patient presented for lower abdominal pain test for pain. he does have epididymal cyst. Patient has no signs of infection. Patient is been having ongoing groin pain status post hernia repair he'll follow-up with his surgeon return parameters were discussed. - Lab Data Lab Results 07/26/21 Range/Units 12:44 Urine Color Yellow Urine Appearance Clear (Clear) Urine pH 6.5 (5.0-8.0) Ur Specific [place] 1.021 (1.001-1.035) Urine Protein Negative (Negative) Urine Glucose (UA) Negative (Negative) Urine Ketones Negative (Negative) Urine Blood Negative (Negative) Urine Nitrite Negative (Negative) Urine Bilirubin Negative (Negative) Urine Urobilinogen <2.0 (<2.0) mg/dL Ur Leukocyte Esterase Negative (Negative) Disposition Clinical Impression: Groin pain, Status post hernia repair, Epididymal cyst Disposition: HOME SELF-CARE Condition: Stable Instructions (If sedation given, give patient instructions): Groin Pain (ED) Additional Instructions: Please return to the Emergency Department if symptoms worsen or any other concerns. Is patient prescribed a controlled substance at d/c from ED?: No Referrals: Beth Cadena MD [Primary Care Provider] - 1-2 days Adrian Syed DO [Doctor of Osteopathic Medicine] - 1-2 days Time of Disposition: 14:21
[2021-07-26 13:13] LABS: Appearance,Urine Clear (Clear); Bilirubin,Urine Negative (Negative); Blood,Urine Negative (Negative); Color,Urine Yellow; Glucose,Urine (UA) Negative (Negative); Ketones,Urine Negative (Negative); Leukocyte Esterase,Urine Negative (Negative); Nitrite,Urine Negative (Negative); PH, Urine 6.5 (5.0-8.0); Protein,Urine Negative (Negative); Specific Gravity,Urine 1.021 (1.001-1.035); Urobilinogen,Urine <2.0 mg/dL (<2.0)
--- NOTE | 2021-07-26 14:16 | US ---
EXAMINATION TYPE: US scrotum with doppler. Grayscale and color Doppler Duplex imaging performed of t he scrotum. DATE OF EXAM: 07/26/2021 COMPARISON: Ultrasound dated 05/11/2021 CLINICAL HISTORY: pain. EXAM MEASUREMENTS: TESTICLES: Right Testicle: 4.9 x 2.0 x 3.8 cm Left Testicle: 4.7 x 2.4 x 3.1 cm EPIDIDYMIS HEAD: Right Epididymis: .6 x .9 x .9 cm Left Epididymis: .7 x 1.0 x .9 cm cystic area seen measuring .5 x .6 x .6 cm. Doppler performed to assess for testicular vascularity; good bilateral color flow and waveforms are s een. There is no evidence of testicular torsion. Presence of hydroceles: no Presence of varicoceles: no IMPRESSION: Small left epididymal head cyst. Otherwise unremarkable scrotal ultrasound. No evidence of testicular torsion or signs of epididymoorchitis.
[2021-07-26] MEDS ORDERED: ACET/COD 300 MG/30 MG STARTER PACK 6 TAB BTL PO STA (14:21)
[2021-07-26 14:48] VITALS: BP 109/60; PULSE 65; RESP 18
== END 2021-07-26 14:48 | disposition home or self-care (01) ==
LOC: EC 11:36
DX: N50.3 Cyst of epididymis (principal); Z98.890 Other specified postprocedural states
CPT/HCPCS: 76870; 81003; 93975; 99284

== ENCOUNTER 2022-04-03 12:43 | Emergency (ER) | payer OTHER ==
[2022-04-03 12:50] VITALS: TEMP 98.3
--- NOTE | 2022-04-03 13:02 | ED ---
General Adult HPI - General Chief complaint: Abdominal Pain Stated complaint: abd/testicular pain Time Seen by Provider: 04/03/22 13:02 Source: patient Mode of arrival: ambulatory Limitations: no limitations - History of Present Illness Initial comments: Patient presents to the ED complaining of having left testicular pain for the past 3 days or so. Patient states that his pain began after he was moving around some furniture, and he feels that he may have "strained something". Patient states that his pain is worse with changes in position. Patient states that his testicular pain radiates to his left lower abdomen at times. Patient denies direct testicular or abdominal trauma. Patient denies fever or chills, headache, chest pain or pressure, dyspnea, cough or cold symptoms, dizziness, upper abdominal pain, back or flank pain, nausea vomiting, diarrhea or constipation, bloody or melanotic stool, dysuria/hematuria/urinary frequency/urinary symptoms, penile discharge, or any other symptoms or complaints. Patient states that he has had prior left inguinal hernia repair. - Related Data Previous Rx's Medication Instructions Recorded Doxycycline Hyclate 100 mg PO BID 10 Days #20 capsule 04/03/22 Allergies Allergy/AdvReac Type Severity Reaction Status Date / Time No Known Allergies Allergy Verified 04/03/22 12:50 Review of Systems ROS Statement: Those systems with pertinent positive or pertinent negative responses have been documented in the HPI. ROS Other: All systems not noted in ROS Statement are negative. Past Medical History Past Medical History: No Reported History History of Any Multi-Drug Resistant Organisms: None Reported Past Surgical History: Adenoidectomy, Hernia Repair, Tonsillectomy Past Psychological History: ADD/ADHD Smoking Status: Never smoker, Vaper Past Alcohol Use History: Occasional Past Drug Use History: Marijuana General Exam Limitations: no limitations General appearance: alert, in no apparent distress Head exam: Present: atraumatic, normocephalic Eye exam: Present: normal appearance, EOMI ENT exam: Present: mucous membranes moist Respiratory exam: Present: normal lung sounds bilaterally. Absent: respiratory distress, wheezes, rales, rhonchi, stridor Cardiovascular Exam: Present: regular rate, normal rhythm, normal heart sounds, other (Normal radial pulses bilaterally) GI/Abdominal exam: Present: soft, normal bowel sounds. Absent: distended, tenderness, guarding exam: Present: other (Mild left testicular tenderness; brisk cremasteric reflexes bilaterally). Absent: urethral discharge, scrotal swelling External exam: Absent: erythema, swelling, ecchymosis Extremities exam: Absent: tenderness, pedal edema Back exam: Absent: CVA tenderness (R), CVA tenderness (L) Neurological exam: Present: alert, oriented X3. Absent: motor sensory deficit Psychiatric exam: Present: normal affect, normal mood Skin exam: Present: warm, dry, intact, normal color Course Vital Signs 04/03/22 04/03/22 12:48 14:37 Temperature 98.3 F Pulse Rate 90 77 Respiratory 18 16 Rate Blood Pressure 125/75 115/75 O2 Sat by Pulse 97 Oximetry Medical Decision Making - Medical Decision Making Patient's UA is unremarkable. Patient's scrotal ultrasound is also unremarkable. Patient reports that he is sexually active. Given the patient's left sided scrotal tenderness and negative ultrasound findings, will treat the patient with antibiotics for possible epididymitis. Patient agrees with this plan. Patient was counseled about testicular pain and epididymitis. Patient was clearly explained return and follow-up instructions. Patient feels comfortable with this plan. - Lab Data Lab Results 04/03/22 Range/Units 13:17 Urine Color Yellow Urine Appearance Clear (Clear) Urine pH 7.0 (5.0-8.0) Ur Specific [place] 1.020 (1.001-1.035) Urine Protein Negative (Negative) Urine Glucose (UA) Negative (Negative) Urine Ketones Negative (Negative) Urine Blood Negative (Negative) Urine Nitrite Negative (Negative) Urine Bilirubin Negative (Negative) Urine Urobilinogen <2.0 (<2.0) mg/dL Ur Leukocyte Esterase Negative (Negative) - Radiology Data Scrotal ultrasound: No testicular torsion or mass. No free fluid. Disposition Clinical Impression: Left testicular pain Narrative: Possible epididymitis Disposition: HOME SELF-CARE Condition: Stable Instructions (If sedation given, give patient instructions): Testicle Pain (ED), Epididymitis (ED) Additional Instructions: Return to the ER immediately should you develop new or worsening pain, swelling, a fever, vomiting, feeling dizzy or faint, or new or worsening symptoms. Follow up closely with your primary care provider. Prescriptions: Doxycycline Hyclate 100 mg PO BID 10 Days #20 capsule Is patient prescribed a controlled substance at d/c from ED?: No Referrals: St[facility]owiak,Familia, PAC [REFERRING] - 1-2 days Time of Disposition: 14:53
[2022-04-03 13:35] LABS: Appearance,Urine Clear (Clear); Bilirubin,Urine Negative (Negative); Blood,Urine Negative (Negative); Color,Urine Yellow; Glucose,Urine (UA) Negative (Negative); Ketones,Urine Negative (Negative); Leukocyte Esterase,Urine Negative (Negative); Nitrite,Urine Negative (Negative); Protein,Urine Negative (Negative); Urobilinogen,Urine <2.0 mg/dL (<2.0)
--- NOTE | 2022-04-03 14:17 | US ---
EXAMINATION TYPE: US scrotum with doppler. Grayscale and color Doppler Duplex imaging performed of t pastor scrotum. DATE OF EXAM: 04/03/2022 COMPARISON: NONE CLINICAL HISTORY: Left testicular pain. pain left side EXAM MEASUREMENTS: TESTICLES: Right Testicle: 4.8 x 2.3 x 3.6 cm Left Testicle: 4.6 x 2.9 x 4.0 cm EPIDIDYMIS HEAD: Right Epididymis: .7 x 1.0 x 1.2 cm Left Epididymis: .8 x .9 x 1.5 cm Cystic area .4 x .6 x .5 cm. Doppler performed to assess for testicular vascularity; good bilateral color flow and waveforms are s een. There is no evidence of testicular torsion. Presence of hydroceles: no Presence of varicoceles: no IMPRESSION: No testicular torsion or mass. No free fluid.
[2022-04-03 14:38] VITALS: BP 115/75; PULSE 77; RESP 16
[2022-04-03] MEDS ORDERED: cefTRIAXone 250 MG VIAL IM STA (14:48)
== END 2022-04-03 15:13 | disposition home or self-care (01) ==
LOC: EC 12:43
DX: N50.812 Left testicular pain (principal); F90.9 Attention-deficit hyperactivity disorder, unspecified type; F17.290 Nicotine dependence, other tobacco product, uncomplicated; F12.90 Cannabis use, unspecified, uncomplicated
CPT/HCPCS: 81003; 93975; 76870; 99284; 96372; J0696; 96360

== ENCOUNTER 2023-08-29 16:07 | Observation (INO) | payer OTHER ==
[2023-08-29] MEDS ORDERED: LORazepam 1 MG TAB PO PRN ×2 (16:26)
[2023-08-29] MEDS ORDERED: LORazepam 2 MG/ML INJ IV PRN (16:26)
--- NOTE | 2023-08-29 16:28 | ED ---
Alcohol HPI - General Chief Complaint: Alcohol Stated Complaint: ETOH withdrawal Time Seen by Provider: 08/29/23 16:17 Source: patient, RN notes reviewed Mode of arrival: ambulatory Limitations: no limitations - History of Present Illness Initial Comments: -23-year-old male with no significant past medical history presents the ED with chief complaint of potential alcohol withdrawal. States that over the last year and a half he has been consuming anywhere between one pint to 1 L of vodka every night and his last drink was on 08/28/23 at 10:00. Patient endorses episode of emesis this morning and feelings of nausea, and shaking. denies diarrhea, shortn ess of breath, auditory and visual hallucinations. Patient states that he is looking to stop drinking and after admission for rehab referral, is open to either inpatient or outpatient. Patient states that spent a week at [facility] for alcohol addiction and withdrawl before, but states they were not helpful. Patient denies previous seizures from alcohol withdrawal. Admits to daily marajuana use, denies other illicit drug use. - Related Data Home Medications Medication Instructions Recorded Confirmed No Known Home Medications 08/29/23 08/29/23 Allergies Allergy/AdvReac Type Severity Reaction Status Date / Time No Known Allergies Allergy Verified 08/29/23 18:04 Review of Systems ROS Statement: Those systems with pertinent positive or pertinent negative responses have been documented in the HPI. ROS Other: All systems not noted in ROS Statement are negative. Past Medical History Past Medical History: No Reported History History of Any Multi-Drug Resistant Organisms: None Reported Past Surgical History: Adenoidectomy, Hernia Repair, Tonsillectomy Past Psychological History: ADD/ADHD Smoking Status: Never smoker, Vaper Past Alcohol Use History: Abuse, Daily, Heavy Past Drug Use History: Marijuana General Exam - General Exam Comments Initial Comments: Visual Physical Exam Vital signs reviewed General: Well-appearing, nontoxic, no acute distress. Head: Normocephalic, atraumatic Eyes: PERRLA, EOMI ENT: Airway patent Chest: Nonlabored breathing Skin: No visual rash, normal skin tone Neuro: Alert and oriented 3 Musculoskeletal: No gross abnormalities Limitations: no limitations General appearance: alert, in no apparent distress Head exam: Present: atraumatic, normocephalic, normal inspection Eye exam: Present: normal appearance, PERRL, EOMI. Absent: scleral icterus, conjunctival injection, periorbital swelling ENT exam: Present: normal exam, mucous membranes moist Neck exam: Present: normal inspection. Absent: tenderness, meningismus, lymphadenopathy Respiratory exam: Present: normal lung sounds bilaterally. Absent: respiratory distress, wheezes, rales, rhonchi, stridor Cardiovascular Exam: Present: regular rate, normal rhythm, normal heart sounds. Absent: systolic murmur, diastolic murmur, rubs, gallop, clicks GI/Abdominal exam: Present: soft, normal bowel sounds. Absent: distended, tenderness, guarding, rebound, rigid Extremities exam: Present: normal inspection, full ROM, normal capillary refill. Absent: tenderness, pedal edema, joint swelling, calf tenderness Back exam: Present: normal inspection Neurological exam: Present: alert, oriented X3, CN II-XII intact Psychiatric exam: Present: normal affect, normal mood Skin exam: Present: warm, dry, intact, normal color. Absent: rash Course Vital Signs 08/29/23 08/29/23 08/29/23 16:09 16:16 18:00 Temperature 98.7 F Pulse Rate 96 91 101 H Respiratory 18 16 16 Rate Blood Pressure 154/106 138/86 141/70 O2 Sat by Pulse 99 97 97 Oximetry 08/29/23 20:00 Temperature Pulse Rate 108 H Respiratory 16 Rate Blood Pressure 142/96 O2 Sat by Pulse 97 Oximetry Medical Decision Making - Medical Decision Making Was pt. sent in by a medical professional or institution (Dr. PA, CHAINSTITCH SEWING MACHINE OPERATOR, urgent ca re, hospital, or fpc...) When possible be specific @ -No Did you speak to anyone other than the patient for history (EMS, parent, family, police, friend...)? What history was obtained from this source @ -No Did you review nursing and triage notes (agree or disagree)? Why? @ -I reviewed and agree with nursing and triage notes Were old charts reviewed (outside hosp., previous admission, EMS record, old EKG, old radiological studies, urgent care reports/EKG's, fpc records)? Report findings @ -No old charts were reviewed Differential Diagnosis (chest pain, altered mental status, abdominal pain women, abdominal pain men, vaginal bleeding, weakness, fever, dyspnea, syncope, he adache, dizziness, GI bleed, back pain, seizure, CVA, palpatations, mental health, musculoskeletal)? @ -Alcohol withdrawal, alcohol abuse EKG interpreted by me (3pts min.). @ -None X-rays interpreted by me (1pt min.). @ -None done CT interpreted by me (1pt min.). @ -None done U/S interpreted by me (1pt. min.). @ -None done What testing was considered but not performed or refused? (CT, X-rays, U/S, labs)? Why? @ -None What meds were considered but not given or refused? Why? @ -None Did you discuss the management of the patient with other professionals (professionals i.e. DrMike, PA, CHAINSTITCH SEWING MACHINE OPERATOR, lab, RT, psych nurse, mental health social worker, testing shaking shipping, teacher, supervisory cbp officer, bottle caser)? Give summary @ -With Dr. Melendrez who is agreeable with [facility] for alcohol withdrawal. Was smoking cessation discussed for >3mins.? @ -No Was critical care preformed (if so, how long)? @ -No Were there social determinants of health that impacted care today? How? (Homelessness, low income, unemployed, alcoholism, drug addiction, transportation, low edu. Level, literacy, decrease access to med. care, half-way, rehab)? @ -No Was there de-escalation of care discussed even if they declined (Discuss DNR or withdrawal of care, Hospice)? DNR status @ -No What co-morbidities impacted this encounter? (DM, HTN, Smoking, COPD, CAD, C ancer, CVA, ARF, Chemo, Hep., AIDS, mental health diagnosis, sleep apnea, morbid obesity)? @ -[Alcohol abuse Was patient admitted / discharged? Hospital course, mention meds given and route, prescriptions, significant lab abnormalities, going to OR and other pertinent info. @ -Admitted. 23-year-old male history of alcohol abuse and concern for withdrawal. On examination patient was found to be tremulous. Denies auditory/visual hallucinations. Patient was started on CIWA protocol, laboratory results ordered in addition to urine drug screen. General medicine consulted for admission of alcohol withdrawal. Dr. grant is agreeable with admission for alcohol withdrawl. Discussed with Dr. Matos Undiagnosed new problem with uncertain prognosis? @ -No Drug Therapy requiring intensive monitoring for toxicity (Heparin, Nitro, Insulin, Cardizem)? @ -No Were any procedures done? @ -No Diagnosis/symptom? @ -alcohol abuse, alcohol withdrawl Acute, or Chronic, or Acute on Chronic? @ -acute Uncomplicated (without systemic symptoms) or Complicated (systemic symptoms)? @ -uncomplicated Side effects of treatment? @ -No Exacerbation, Progression, or Severe Exacerbation? @ -No Poses a threat to life or bodily function? How? (Chest pain, USA, ND, pneumonia, PE, COPD, DKA, ARF, appy, cholecystitis, CVA, Diverticulitis, Homicidal, Suicidal, threat to staff... and all critical care pts) @ -Yes, DTs secondary to alcohol withdrawal can lead to seizures and potential . - Lab Data Result diagrams: 08/29/23 17:04 08/29/23 17:04 Lab Results 08/29/23 08/29/23 08/29/23 Range/Units 17:04 17:04 17:04 WBC 9.7 (3.8-10.6) k/uL RBC 5.21 (4.30-5.90) m/uL Hgb 15.7 (13.0-17.5) gm/dL Hct 48.0 (39.0-53.0) % MCV 92.1 (80.0-100.0) fL MCH 30.2 (25.0-35.0) pg MCHC 32.8 (31.0-37.0) g/dL RDW 13.1 (11.5-15.5) % Plt Count 255 (150-450) k/uL MPV 8.6 Neutrophils % 65 % Lymphocytes % 23 % Monocytes % 9 % Eosinophils % 1 % Basophils % 1 % Neutrophils # 6.3 (1.3-7.7) k/uL Lymphocytes # 2.2 (1.0-4.8) k/uL Monocytes # 0.9 (0-1.0) k/uL Eosinophils # 0.1 (0-0.7) k/uL Basophils # 0.1 (0-0.2) k/uL PT 11.4 (10.0-12.5) sec INR 1.0 (<1.2) APTT 26.4 (22.0-30.0) sec Sodium 138 (137-145) mmol/L Potassium 3.7 (3.5-5.1) mmol/L Chloride 104 (98-107) mmol/L Carbon Dioxide 24 (22-30) mmol/L Anion Gap 10 mmol/L BUN 11 (9-20) mg/dL Creatinine 0.71 (0.66-1.25) mg/dL Est GFR (CKD-EPI)AfAm >90 (>60 ml/min/1.73 sqM) Est GFR (CKD-EPI)NonAf >90 (>60 ml/min/1.73 sqM) Glucose 113 H (74-99) mg/dL Calcium 9.6 (8.4-10.2) mg/dL Phosphorus 2.8 (2.5-4.5) mg/dL Magnesium 2.1 (1.6-2.3) mg/dL Total Bilirubin 0.6 (0.2-1.3) mg/dL AST 179 H (17-59) U/L ALT 298 H (4-49) U/L Alkaline Phosphatase 78 (38-126) U/L Total Protein 7.0 (6.3-8.2) g/dL Albumin 4.6 (3.5-5.0) g/dL Amylase 52 (30-110) U/L Lipase 45 (23-300) U/L Urine Opiates Screen (NotDetected) Ur Oxycodone Screen (NotDetected) Urine Methadone Screen (NotDetected) Ur Barbiturates Screen (NotDetected) U Tricyclic Antidepress (NotDetected) Ur Phencyclidine Scrn (NotDetected) Ur Amphetamines Screen (NotDetected) U Methamphetamines Scrn (NotDetected) U Benzodiazepines Scrn (NotDetected) Urine Cocaine Screen (NotDetected) U Marijuana (THC) Screen (NotDetected) 08/29/23 Range/Units 17:04 WBC (3.8-10.6) k/uL RBC (4.30-5.90) m/uL Hgb (13.0-17.5) gm/dL Hct (39.0-53.0) % MCV (80.0-100.0) fL MCH (25.0-35.0) pg MCHC (31.0-37.0) g/dL RDW (11.5-15.5) % Plt Count (150-450) k/uL MPV Neutrophils % % Lymphocytes % % Monocytes % % Eosinophils % % Basophils % % Neutrophils # (1.3-7.7) k/uL Lymphocytes # (1.0-4.8) k/uL Monocytes # (0-1.0) k/uL Eosinophils # (0-0.7) k/uL Basophils # (0-0.2) k/uL PT (10.0-12.5) sec INR (<1.2) APTT (22.0-30.0) sec Sodium (137-145) mmol/L Potassium (3.5-5.1) mmol/L Chloride (98-107) mmol/L Carbon Dioxide (22-30) mmol/L Anion Gap mmol/L BUN (9-20) mg/dL Creatinine (0.66-1.25) mg/dL Est GFR (CKD-EPI)AfAm (>60 ml/min/1.73 sqM) Est GFR (CKD-EPI)NonAf (>60 ml/min/1.73 sqM) Glucose (74-99) mg/dL Calcium (8.4-10.2) mg/dL Phosphorus (2.5-4.5) mg/dL Magnesium (1.6-2.3) mg/dL Total Bilirubin (0.2-1.3) mg/dL AST (17-59) U/L ALT (4-49) U/L Alkaline Phosphatase (38-126) U/L Total Protein (6.3-8.2) g/dL Albumin (3.5-5.0) g/dL Amylase (30-110) U/L Lipase (23-300) U/L Urine Opiates Screen Not Detected (NotDetected) Ur Oxycodone Screen Not Detected (NotDetected) Urine Methadone Screen Not Detected (NotDetected) Ur Barbiturates Screen Not Detected (NotDetected) U Tricyclic Antidepress Not Detected (NotDetected) Ur Phencyclidine Scrn Not Detected (NotDetected) Ur Amphetamines Screen Not Detected (NotDetected) U Methamphetamines Scrn Not Detected (NotDetected) U Benzodiazepines Scrn Not Detected (NotDetected) Urine Cocaine Screen Not Detected (NotDetected) U Marijuana (THC) Screen Detected H (NotDetected) Disposition Clinical Impression: Alcohol withdrawal syndrome Disposition: ADMITTED IP TO THIS [facility] Condition: Good Decision to Admit Reason: Admit from EC (Alcohol withdrawl) Decision Date: 08/29/23 Decision Time: 17:41
[2023-08-29] MEDS: LORazepam 2 MG/ML INJ IV PRN (16:58)
[2023-08-29 17:09] LABS: Basophils # (A) 0.1 k/uL (0-0.2); Basophils % (A) 1 %; Eosinophils # (A) 0.1 k/uL (0-0.7); Eosinophils % (A) 1 %; HGB 15.7 gm/dL (13.0-17.5); Lymphocytes # (A) 2.2 k/uL (1.0-4.8); Lymphocytes % (A) 23 %; MCH 30.2 pg (25.0-35.0); MCHC 32.8 g/dL (31.0-37.0); MCV 92.1 fL (80.0-100.0); Mean Platelet Volume 8.6; Monocytes # (A) 0.9 k/uL (0-1.0); Monocytes % (A) 9 %; Neutrophils # (A) 6.3 k/uL (1.3-7.7); Neutrophils % (A) 65 %; Platelet Count 255 k/uL (150-450); RBC 5.21 m/uL (4.30-5.90); RDW 13.1 % (11.5-15.5); WBC 9.7 k/uL (3.8-10.6)
[2023-08-29 17:21] LABS: Amphetamine Screen,Urine Not Detected (NotDetected); Barbiturate Screen,Urine Not Detected (NotDetected); Benzodiazepines Screen,Urine Not Detected (NotDetected); Cocaine Screen,Urine Not Detected (NotDetected); Methadone Screen, Urine Not Detected (NotDetected); Opiate Screen,Urine Not Detected (NotDetected); Oxycodone Screen, Urine Not Detected (NotDetected); Partial Thromboplastin Time 26.4 sec (22.0-30.0); Phencyclidine Screen,Urine Not Detected (NotDetected); Prothrombin Time 11.4 sec (10.0-12.5); Tricyclic Antidepressant,Urine Not Detected (NotDetected); Urn Cannabinoid Scrn Detected (NotDetected)
[2023-08-29] MEDS ORDERED: KETOROLAC 15 MG/ML 1 ML VIAL IVP PRN (17:41)
[2023-08-29] MEDS ORDERED: NALOXONE 0.4 MG/ML 1 ML VIAL IV PRN (17:41)
[2023-08-29 17:51] LABS: ALT 298 U/L (4-49); AST 179 U/L (17-59); African American GFR (CKD) >90 (>60 ml/min/1.73 sqM); Albumin 4.6 g/dL (3.5-5.0); Alkaline Phosphatase 78 U/L (38-126); Amylase 52 U/L (30-110); Anion Gap 10 mmol/L; Blood Urea Nitrogen 11 mg/dL (9-20); Calcium 9.6 mg/dL (8.4-10.2); Carbon Dioxide 24 mmol/L (22-30); Chloride 104 mmol/L (98-107); Glucose 113 mg/dL (74-99); Lipase 45 U/L (23-300); Magnesium 2.1 mg/dL (1.6-2.3); Non-African American GFR(CKD) >90 (>60 ml/min/1.73 sqM); Phosphorus 2.8 mg/dL (2.5-4.5); Potassium 3.7 mmol/L (3.5-5.1); Sodium 138 mmol/L (137-145); Total Bilirubin 0.6 mg/dL (0.2-1.3)
[2023-08-29] MEDS: THIAMINE 100 MG/ML 2 ML VIAL IM STA (18:37)
[2023-08-29] MEDS: SODIUM CHLORIDE 0.9% 1,000 ML IV STA (18:38)
[2023-08-29] MEDS: PANTOPRAZOLE 40 MG/10 ML VIAL IVP STA (18:54)
[2023-08-29] MEDS: ONDANSETRON 4 MG/2 ML VIAL IVP PRN (22:43)
[2023-08-30] MEDS: LORazepam 0.5 MG TAB PO PRN (05:04)
[2023-08-30] MEDS: HEPARIN SODIUM,PORCINE 5,000 UNIT/ML 1 ML VIAL SQ SCH (07:40)
[2023-08-30] MEDS: THIAMINE 100 MG TAB PO SCH (07:41)
[2023-08-30] MEDS: FAMOTIDINE 20 MG/2 ML VIAL IV SCH (08:33)
[2023-08-30] MEDS: LORazepam 1 MG TAB PO PRN (10:09)
--- NOTE | 2023-08-30 10:25 | P.HPIM ---
History of Present Illness This is a pleasant 23 years old male with no significant past medical history Who presents because of alcohol withdrawal Patient states that he drinks about 1 L 12 pint of vodka daily with no beer or wine. It affects his brain and function and he hates himself that is why he wants to quit, his girlfriend drove him to the hospital because he wants to quit. Patient currently sitting up in bed denies chest pain or dyspnea, no abdominal pain or vomiting. No urinary complaint or dysuria or change frequency No headaches dizziness weakness or numbness. He vape but no smoking he was counseled to quit and he agrees but she declines nicotine patch He uses marijuana at times. Patient states that he has mild depression but he denies suicidal homicidal ideation currently or before. He denies hallucination or other visual or auditory. No delusions. He states he has never been in psych hospital before and he does not see psychiatrist regularly Patient denies history of seizure or alcohol withdrawal seizure, he is not on seizure medication He is hemodynamically stable he was mildly tachycardic but now is better at 79, he is afebrile Other than mildly elevated liver enzymes patient has unremarkable lab workup including CBC, INR, BMP and lipase. Urine drug screen is positive for marijuana Patient started on CIWA and thiamine Review of Systems Review of systems CONSTITUTIONAL: No fever, no malaise, no fatigue. HEENT: No recent visual problems or hearing problems. Denied any sore throat. CARDIOVASCULAR: No orthopnea, PND, no palpitations, no syncope. PULMONARY: No shortness of breath, no cough, no hemoptysis. GASTROINTESTINAL: No diarrhea, no nausea, no vomiting, no abdominal pain. Normoactive bowel sounds. NEUROLOGICAL: No headaches, no weakness, no numbness. HEMATOLOGICAL: Denies any bleeding or petechiae. GENITOURINARY: Denies any burning micturition, frequency, or urgency. MUSCULOSKELETAL/RHEUMATOLOGICAL: Denies any joint pain, swelling, or any muscle pain. ENDOCRINE: Denies any polyuria or polydipsia. Past Medical History Past Medical History: No Reported History History of Any Multi-Drug Resistant Organisms: None Reported Past Surgical History: Adenoidectomy, Hernia Repair, Tonsillectomy Past Anesthesia/Blood Transfusion Reactions: No Reported Reaction Past Psychological History: ADD/ADHD Smoking Status: Never smoker, Vaper Past Alcohol Use History: Abuse, Daily, Heavy Past Drug Use History: Marijuana Medications and Allergies Home Medications Medication Instructions Recorded Confirmed Type No Known Home Medications 08/29/23 08/29/23 History Allergies Allergy/AdvReac Type Severity Reaction Status Date / Time No Known Allergies Allergy Verified 08/29/23 18:04 Physical Exam Vitals: Vital Signs Temp Pulse Pulse Resp BP BP Pulse Ox 08/30/23 07:34 98.1 F 79 18 146/85 98 08/30/23 01:33 98.7 F 86 18 137/91 99 08/29/23 20:00 108 H 16 142/96 97 08/29/23 18:00 101 H 16 141/70 97 08/29/23 16:16 91 16 138/86 97 08/29/23 16:09 98.7 F 96 18 154/106 99 Intake and Output 08/29/23 08/30/23 08/30/23 22:59 06:59 14:59 Other: Voiding Method Toilet Toilet # Voids 3 Weight 99.79 kg GENERAL: The patient is alert and oriented x3, not in any acute distress. Well developed, well nourished. HEENT: Pupils are round and equally reacting to light. EOMI. No scleral icterus. No conjunctival pallor. Normocephalic, atraumatic. No pharyngeal erythema. No thyromegaly. CARDIOVASCULAR: S1 and S2 present. No murmurs, rubs, or gallops. PULMONARY: Chest is clear to auscultation, no wheezing , no crackles. ABDOMEN: Soft, nontender, nondistended, normoactive bowel sounds. No palpable organomegaly. MUSCULOSKELETAL: No joint swelling or deformity. EXTREMITIES: No cyanosis, clubbing, or pedal edema. NEUROLOGICAL: Gross neurological examination did not reveal any focal deficits. SKIN: No rashes. no petechiae. Results CBC & Chem 7: 08/29/23 17:04 08/29/23 17:04 Labs: Abnormal Lab Results - Last 24 Hours (Table) 08/29/23 08/29/23 Range/Units 17:04 17:04 Glucose 113 H (74-99) mg/dL AST 179 H (17-59) U/L ALT 298 H (4-49) U/L U Marijuana (THC) Screen Detected H (NotDetected) Thrombosis Risk Factor Assmnt - Choose All That Apply Any of the Below Risk Factors Present?: No Other Risk Factors: No Thrombosis Risk Factor Assessment Level: Very Low Risk Assessment and Plan Assessment: Alcohol use disorder and alcohol withdrawal Mild depression Mild transaminitis most likely secondary to alcohol effect Plan: Continue CIWA protocol Continue with thiamine I counseled the patient about [place] extensively, he does not want to go back. Consult psychiatry for further care Labs and medication were reviewed.. Continue same treatment. Continue with symptomatic treatment. Resume home medication. Monitor labs and vitals. DVT and GI prophylaxis. Further recommendations as per clinical course of the patient DVT prophylaxis: Subcutaneous heparin GI Prophylaxis: Pepcid
[2023-08-30] MEDS: IBUPROFEN 400 MG TAB PO PRN (23:26)
[2023-08-31] MEDS: LORazepam 2 MG/ML INJ IV PRN (01:52)
[2023-08-31 09:13] LABS: ALT 265 U/L (10-49); AST 126 U/L (14-35); Albumin 4.5 g/dL (3.8-4.9); Albumin/Globulin Ratio 2.14 Ratio (1.60-3.17); Alkaline Phosphatase 73 U/L (41-126); BUN/Creat Ratio 12.71 Ratio (12.00-20.00); Bilirubin, Conjugated 0.28 mg/dL (0.20-0.40); Bilirubin,Unconjugated 0.42 mg/dL (0.20-1.00); Blood Urea Nitrogen 8.9 mg/dL (9.0-27.0); Calcium 9.2 mg/dL (8.7-10.3); Carbon Dioxide 20.5 mmol/L (21.6-31.8); Chloride 107 mmol/L (96-109); Globulin 2.1 g/dL (1.6-3.3); Glucose 87 mg/dL (70-110); Magnesium 2.3 mg/dL (1.5-2.4); Potassium 3.7 mmol/L (3.5-5.5); Sodium 142 mmol/L (135-145); Total Bilirubin 0.7 mg/dL (0.3-1.2); Total Protein 6.6 g/dL (6.2-8.2)
[2023-08-31] MEDS ORDERED: hydrOXYzine pamoate 25 MG CAP PO PRN (11:59)
[2023-08-31] MEDS ORDERED: NALTREXONE HCL 50 MG TAB PO SCH (12:00)
--- NOTE | 2023-08-31 12:02 | P.CN ---
Psychiatric Consult - . Consult date: 08/31/23 Consult:: 08/31/23 10:25 IDENTIFYING DATA: This patient is a 23 year old male, currently lives with his mother in a house, he is unemployed. REASON FOR REFERRAL: Psychiatry was consulted for alcoholism, depression, psych illness HISTORY OF PRESENT ILLNESS: The patient presented to the hospital on 08/28. Patient is currently on the medical floor, and was admitted due to potential alcohol withdraw. Patient is mildly tachycardic. States he drinks 1/5 to 1 L of vodka per day for at least the past year and a half. States he feels worthless when he drinks, that it is affecting his family. He states his cravings come and go, however, he is not having withdraw symptoms, and he is ready to stop drinking. He states he has an appointment at [facility] tomorrow to get the vivitrol injection, commercial underwriter explained to the patient that the naltrexone pill should be started prior to the injection, to be sure the patient can tolerate it well. Patient agreeable. Patient was fairly evasive about his drinking, fairly superficial as well with the plan. Research Librarian communicated with patient and patients nurse, to give patient information on rehab and different resources upon discharge. At this time he is denying any depression or anxiety however was requesting medications for as needed anxiety when he goes home as he is to have Klonopin. Research Librarian spoke with him about the dangers of mixing Klonopin with alcohol, patient verbally understood and agreed. At this time patient denies any suicidal or homicidal ideations, intent or plan. Patient denies any auditory, visual hallucinations and denies any paranoia or delusions. Patients admits to using marijuana and vape pen PAST PSYCHIATRIC HIST.ORY: Patient has no history of inpatient treatment was prescribed Klonopin by his family doctor.Patient denies any psychiatric outpatient follow-up. Patient denies any history of suicide attempts in the past. PAST MEDICAL HISTORY: Past Medical History: No Reported History History of Any Multi-Drug Resistant Organisms: None Reported Past Surgical History: Adenoidectomy, Hernia Repair, Tonsillectomy Past Psychological History: ADD/ADHD Smoking Status: Never smoker, Vaper Past Alcohol Use History: Abuse, Daily, Heavy Past Drug Use History: Marijuana ALLERGIES: as per EMR. CHEMICAL DEPENDENCY HISTORY: as per HPI. FAMILY PSYCHIATRIC/SUBSTANCE USE HISTORY: Denies SOCIAL HISTORY: Patient was born and raised in [place]. Lives with mother in a house. Has no children. High school graduate. Unemployed Denies legal history. MENTAL STATUS EXAM: General Appearance: Patient appears to be stated age is alert, pleasant, and cooperative. Patient appears to have fair hygiene and grooming wearing his own clothes, with good eye contact. Behavior: [Patient is calmly sitting in bed without any agitated behavior. Speech: Patient's speech is fluent and nonpressured. Mood/Affect: Patient reports their mood is "good", affect is congruent Suicidality/Homicidality: Patient denies having any suicidal or homicidal ideation intent or plan. Perceptions: Patient denies any visual hallucinations and denies any auditory hallucinations Though content/process: There is no evidence of any delusional thought content and thought process is linear and goal-directed. Memory and concentration: AOX3, grossly intact for the purposes of this session. Can spell "WORLD" backwards Judgment and insight: fair IMPRESSIONS: Alcohol use disorder, severe dependence Anxiety disorder, unspecified Nicotine dependence Cannabis use disorder, mild PLAN: -At this time patient DOES NOT meet criteria for inpatient psychiatric admission. -Would recommend the following medication changes/additions: added visteral 50mg prn daily for anxiety, add naltrexone 50mg daily for alcohol cravings. Patient states that he will be going to [facility] to see if he can be transitioned onto Vivitrol injection after he is taking naltrexone p.o. and tolerating it well. [-CIWA protocol with PRN Ativan for alcohol withdrawal. Continue to monitor vital signs. -Research Librarian spoke with patient about substance abuse and the harmful effects on medical and mental health, patient verbally understood and agreed. [-stock worker to provide patient substance use treatment resources including AA/NA meetings in the community. [-stock worker to provide patient with access line number to call for inpatient substance rehab -Communicated plan to patient's nurse -Psychiatry will sign off at this time -Please contact with any questions.
[2023-08-31 13:40] VITALS: BP 157/91; PULSE 92; RESP 17; TEMP 98.1
--- NOTE | 2023-09-01 06:06 | P.DS ---
Providers Date of admission: 08/29/23 18:03 Attending physician: Sloane Ray Consults: 08/30/23 10:18 Consult Physician Routine Consulting Provider: Rian Leggett Consult Reason/Comments: alcoholic, psych illness, depression Do you want consulting provider notified?: Yes Primary care physician: Stated None Hospital Course: Diagnoses: Alcohol use disorder and alcohol withdrawal Mild depression Mild transaminitis,secondary to alcohol effect, improvement Substance abuse with marijuana Hospital course: This is a pleasant 23 years old male with no significant past medical history Who presents because of alcohol withdrawal. Patient states he does not want to go to [place] because he does not like to keep him for extended. Therefore he came to the hospital for his alcohol problem. Patient states that he drinks about 1 L 12 pint of vodka daily with no beer or wine. Patient states his last drink was Monday about 3 days earlier. Patient was admitted and treated for his alcohol withdrawal using CIWA protocol. First days his CIWA went to 16 x 1 and it has been controlled with benzodiazepine, since then his CIWA score was low more than 24 hours. Patient required minimal benzodiazepine. Patient fully awake and oriented and back to baseline. Patient is with no other symptoms currently. He denies chest pain or dyspnea. No neurological symptoms. Patient is agreeable to go home. Patient evaluated by psychiatrist and recommend to discharge the patient on hydroxyzine and naltrexone. Patient was cleared for discharge by psychiatrist. Patient states that he is going to follow-up with [facility] next day In the morning to receive further treatment and he already made his appointment with Problems and management plan were discussed with the patient and he verbalized understanding and acceptance Patient was found stable and can be discharged home in guarded prognosis however he needs follow-up as an outpatient. Patient was instructed to follow up with PCP within one week and patient agrees Patient's was instructed to follow-up with [facility] as above Physical exam Gen: patient is a AAOx3, no distress CVS: S1-S2, RRR, no murmur Lungs: B/L CTA, no wheezing Abdomen: soft, no distention, no tenderness, positive bowel sounds Extremity: no leg edema or induration Time spent more than 35 minutes Patient Condition at Discharge: Good Plan - Discharge Summary Discharge Rx Participant: Yes New Discharge Prescriptions: New Thiamine [Vitamin B-1] 100 mg PO DAILY #30 tab hydrOXYzine pamoate [Vistaril] 50 mg PO DAILY PRN 15 Days #30 cap PRN Reason: Anxiety Naltrexone HCl [Revia] 50 mg PO DAILY 15 Days #15 tab Discharge Medication List Naltrexone HCl [Revia] 50 mg PO DAILY 15 Days #15 tab 08/31/23 [Rx] Thiamine [Vitamin B-1] 100 mg PO DAILY #30 tab 08/31/23 [Rx] hydrOXYzine pamoate [Vistaril] 50 mg PO DAILY PRN 15 Days #30 cap 08/31/23 [Rx] Follow up Appointment(s)/Referral(s): None,Stated [Primary Care Provider] - 1-2 days (Please call a primary care provider for follow-up appointment.) Patient Instructions/Handouts: Alcohol Withdrawal (ED) Activity/Diet/Wound Care/Special Instructions: We recommend you follow-up with [facility] appointment you have made tomorrow morning as instructed We recommend to call your health insurance provider to find a nearby primary care doctor. Please call and make an appointment within 1 week Discharge/Stand Alone Forms: Outpatient Counseling, Inp Substance Abuse Facilities, Personal Contact Lens Lathe Operator Discharge Disposition: HOME SELF-CARE
== END 2023-08-31 16:10 | disposition home or self-care (01) ==
LOC: EC 16:07 → 4SSUR 18:03
PROVIDERS: ADMIT Internal Medicine; ATTEND Internal Medicine
DX: F10.239 Alcohol dependence with withdrawal, unspecified (principal); F41.9 Anxiety disorder, unspecified; F32.A Depression, unspecified; R74.01 Elevation of levels of liver transaminase levels; F12.10 Cannabis abuse, uncomplicated; F17.290 Nicotine dependence, other tobacco product, uncomplicated
CPT/HCPCS: 96376 ×2; 96372 ×3; 96375 ×3; 82075; 96361; 96374; 99285; 36415; 80053; 80048; 80076; 82150; 83690; 83735 ×2; 84100; 85025; 85610; 85730; 80306; G0378 ×3; J2060 ×3; J1644 ×2; J3411; J2405 ×2; J3490 ×2; C9113

== ENCOUNTER → 2024-11-13 | Outpatient (CLI) | payer OTHER ==
--- NOTE | 2024-11-13 14:35 | US ---
EXAMINATION TYPE: US scrotum with doppler. DATE OF EXAM: 11/13/2024 COMPARISON: 04/03/2022 CLINICAL INDICATION: Male, 24 years old with history of N50.819 TESTICULAR PAIN; pt hit scrotum with hammer yesterday, no swelling, bruising or redness, pain x 1 day TECHNIQUE: Grayscale, color Doppler and spectral Doppler imaging of the scrotum. FINDINGS: EXAM MEASUREMENTS: TESTICLES: Right Testicle: 4.7x2.3x3.1 cm Left Testicle: 4.2x2.2x3.2 cm Punctate Calcification seen left testicle EPIDIDYMIS HEAD: Right Epididymis: 0.6x1.1x0.9 cm Anechoic area seen: 0.2x0.2x0.2cm Left Epididymis: 0.8x0.6x0.9 cm Doppler performed to assess for testicular vascularity; good bilateral color flow and spectral wavefo brayden are seen. There is no evidence of testicular torsion. Presence of hydroceles: no Presence of varicoceles: no IMPRESSION: 1. No acute testicular ultrasound abnormality. [facility], , 11/13/2024 2:32 PM
== END | disposition home or self-care (01) ==
LOC: RADUSWWP 13:44
PROVIDERS: ATTEND Family Medicine
DX: N50.819 Testicular pain, unspecified (principal)
CPT/HCPCS: 76870; 93975